=== PATIENT | male | born 1965 | race Caucasian/White ===

== ENCOUNTER → 2020-02-06 | Outpatient (CLI) | payer BC ==
--- NOTE | 2020-02-06 15:39 | Diagnostic Imaging Report ---
INDICATION: Skull pain TECHNIQUE: XRAY Skull Complete Multiple views of the skull were obtained COMPARISON: None FINDINGS: No displaced calvarial fracture identified. Sinuses appear well aerated. No lytic lesions identified. Temporomandibular joints are in good alignment. Visualized cervical spine demonstrates mild degenerative changes. Multiple dental prostheses are noted. IMPRESSION: No calvarial fracture or lytic lesions identified. Please note that skull radiograph to relatively insensitive, and if there is continued clinical concern, further evaluation with head CT is recommended.
== END | disposition home or self-care (01) ==
LOC: RAD 12:59
DX: L98.9 Disorder of the skin and subcutaneous tissue, unspecified (principal); R51.9 Headache, unspecified
CPT/HCPCS: 70260